=== PATIENT | female | born 1955 | race Caucasian/White ===

== ENCOUNTER 2020-05-26 12:24 | Emergency (ER) | payer OTHER ==
[2020-05-26 14:57] LABS: HEMOGLOBIN 12.4 gm/dl (12.3-15.3); RED BLOOD COUNT 3.03 M/UL (4.00-5.10); WHITE BLOOD COUNT 19.4 K/UL (4.5-11.0)
== END 2020-05-26 22:04 | disposition short-term general hospital (02) ==
LOC: ER1 12:24
PROVIDERS: Physician Assistant Medical
DX: K85.90 Acute pancreatitis without necrosis or infection, unspecified (principal); R65.10 Systemic inflammatory response syndrome (SIRS) of non-infectious origin without acute organ dysfunction; E87.6 Hypokalemia; D72.829 Elevated white blood cell count, unspecified; K74.60 Unspecified cirrhosis of liver; F10.10 Alcohol abuse, uncomplicated; I10 Essential (primary) hypertension; K21.9 Gastro-esophageal reflux disease without esophagitis; F17.210 Nicotine dependence, cigarettes, uncomplicated; Z20.822 Contact with and (suspected) exposure to COVID-19
CPT/HCPCS: 80053; 80061; 80307; 81001; 82550; 82553; 83605; 83690; 83874; 84484; 85025; 85610; 87040; 87077; 87186; 96365; 96375; 99285; J2543; J3480; Q9965; Q9967; U0002

== ENCOUNTER → 2020-08-28 | Outpatient (CLI) | payer OTHER ==
[2020-08-28 14:34] LABS: BUN/CREATININE RATIO 10 (0-10)
== END ==
LOC: LAB 12:58
PROVIDERS: Internal Medicine
DX: R18.8 Other ascites (principal)
CPT/HCPCS: 36415; 80053